=== PATIENT | female | born 1955 | race Caucasian/White ===

== ENCOUNTER 2020-07-21 13:59 | Inpatient (IN) | payer MEDICARE ==
[~2020-07-21] VITALS: Ht 162.6 cm; Wt 82.6 kg
[2020-07-21 15:09] LABS: BASOPHILS % (AUTO) 0.7 % (0.0-5.0); EOSINOPHILS % (AUTO) 0.9 % (0.0-8.0); HEMATOCRIT 42.9 % (36-48); MEAN CORPUSCULAR VOLUME 88.3 fL (79-99); MONOCYTES % (AUTO) 5.3 % (3.0-13.0); PLATELET COUNT (AUTO) 268 K/uL (130-400); RED BLOOD CELL COUNT(AUTO) 4.86 MIL/uL (4.00-5.50); WHITE BLOOD COUNT (AUTO) 6.8 K/uL (4.8-10.8)
[2020-07-21 15:22] LABS: INR 0.99 (0.85-1.15); PROTHROMBIN TIME 10.8 SEC (9.6-11.6)
[2020-07-21 15:24] LABS: PARTIAL THROMBOPLASTIN TIME 24.5 SEC (26.3-35.5)
[2020-07-21 15:36] LABS: CARBON DIOXIDE 27 mmol/L (21-32); CHLORIDE 101 mmol/L (101-111); CREATININE 0.9 mg/dL (0.5-1.5); GLOMERULAR FILTR. RATE CALC 67 mL/min (>60); GLUCOSE,RANDOM 99 mg/dL (70-105); POTASSIUM 4.3 mmol/L (3.5-5.1); SODIUM SERUM 136 mmol/L (136-145); UREA NITROGEN, BLOOD 16 mg/dL (7-18)
[2020-07-21 15:49] LABS: ALANINE AMINOTRANSFERASE 22 U/L (12-78); ALBUMIN 4.4 g/dL (3.5-5.0); ASPARTATE AMINOTRANSFERASE 28 U/L (10-37); BILIRUBIN,TOTAL 0.4 mg/dL (0.2-1.0); CREATINE KINASE, TOTAL 116 U/L (21-232); TOTAL PROTEIN, SERUM 7.8 g/dL (6.0-8.3)
[2020-07-21 15:53] LABS: CRP QUANTITATIVE < 2.00 mg/L (0.00-9.0)
[2020-07-21 16:13] LABS: ERYTHROCYTE SEDIMENTATION RATE 8 MM/HR (0-30)
[2020-07-21 20:54] LABS: APPEARANCE,URINE Clear (CLEAR); BILIRUBIN,URINE Negative (NEGATIVE); COLOR,URINE Yellow (YELLOW); GLUCOSE, URINE (UA) Negative (NEGATIVE); KETONES,URINE Negative (NEGATIVE); LEUKOCYTE ESTERASE ,URINE Moderate (NEGATIVE); NITRATE,URINE Negative (NEGATIVE); OCCULT BLOOD,URINE Negative (NEGATIVE); PROTEIN,URINE Negative (NEGATIVE); UROBILINOGEN,URINE 0.2 mg/dL (0.2-1.0)
[2020-07-21 21:21] LABS: RBC,URINE 0-1 /HPF (0-1)
[2020-07-21 21:22] LABS: BACTERIA,URINE Rare /HPF (None Seen); SQUAMOUS EPITHELIAL CELL,UR Rare /HPF (0-2); TRANSITIONAL EPI CELLS,URINE Rare /HPF (None Seen)
[2020-07-22] MEDS ORDERED: ONDANSETRON 4MG INJ IV PRN (02:30)
[2020-07-22] MEDS ORDERED: MORPHINE 2 MG SYG IV PRN (02:30)
[2020-07-22] MEDS ORDERED: LACTULOSE 20 GM/30 ML UDCUP PO PRN (02:30)
[2020-07-22] MEDS ORDERED: MORPHINE 4 MG SYG IV PRN (02:30)
[2020-07-22] MEDS: 0.9%NACL 1000ML 1,000 ML IV SCH ×2 (02:30→16:48)
[2020-07-22] MEDS ORDERED: 0.9%NACL 1000ML 1,000 ML IV ONE (03:03)
[2020-07-22] MEDS ORDERED: ATENOLOL 25 MG TABLET PO SCH ×2 (03:15→09:00)
[2020-07-22] MEDS ORDERED: CEFTRIAXONE 1G VIAL ONE ×2 (08:24→20:51)
[2020-07-22] MEDS ORDERED: FAMOTIDINE 20MG VIAL IV ONE ×2 (08:25→20:52)
[2020-07-22] MEDS ORDERED: MULTIVITAMIN TABLET ONE (08:25)
[2020-07-22] MEDS: LIOTHYRONINE 25 MCG PO SCH (09:00)
[2020-07-22] MEDS: FLUDROCORTISONE ACETATE 0.1 MG TABLET PO SCH (09:00)
[2020-07-22] MEDS: PAROXETINE HCL 20 MG TABLET PO SCH (09:00)
[2020-07-22] MEDS ORDERED: HYDROCORTISONE 20 MG TABLET PO SCH ×2 (09:00→14:00)
[2020-07-22] MEDS: MULTIVITAMIN TABLET PO SCH (09:00)
[2020-07-22] MEDS ORDERED: HYDROCORTISONE SOD SUCCINATE 100 MG/2 ML VIAL IV SCH (09:14)
[2020-07-22] MEDS ORDERED: 0.9%NACL 50ML 50 ML IV ONE (09:23)
[2020-07-22] MEDS: HYDROCORTISONE SOD SUCCINATE 100 MG/2 ML VIAL IV SCH ×2 (12:00→18:00)
[2020-07-22] MEDS ORDERED: MULT-1203 PO (13:54)
[2020-07-22] MEDS ORDERED: LIOT25TA12 PO (13:58)
[2020-07-22] MEDS ORDERED: LEVO50CA4 PO (13:59)
[2020-07-22] MEDS ORDERED: FLUD0.1T2 PO (14:00)
[2020-07-22] MEDS ORDERED: PARO30TA60 PO (14:01)
[2020-07-22] MEDS ORDERED: ROSU10TA28 PO (14:02)
[2020-07-22] MEDS ORDERED: ATEN25TA PO (14:02)
[2020-07-22] MEDS ORDERED: HYDR20TA24 PO (14:04)
[2020-07-22] MEDS ORDERED: HYDR-4419 PO (14:06)
[2020-07-22] MEDS: ENOXAPARIN SODIUM 40 MG/0.4 ML SYRINGE SQ SCH (18:00)
[2020-07-22] MEDS ORDERED: ENOXAPARIN SODIUM 40 MG/0.4 ML SYRINGE SQ ONE (18:01)
[2020-07-22] MEDS ORDERED: ATORVASTATIN 20 MG TABLET ONE (20:51)
[2020-07-22] MEDS ORDERED: ATENOLOL 25 MG TABLET ONE (20:51)
[2020-07-22] MEDS: CEFTRIAXONE 1G VIAL IV SCH (21:00)
[2020-07-22] MEDS: FAMOTIDINE 20MG VIAL IV SCH (21:00)
[2020-07-22] MEDS ORDERED: ATORVASTATIN 20 MG TABLET PO SCH (21:00)
[2020-07-22 21:30] VITALS: BP 109/76
[2020-07-23] VITALS (20 sets, daily range): BP systolic 97–125; BP diastolic 48–69
[2020-07-23 04:34] LABS: HEMATOCRIT 42.1 % (36-48); MEAN CORPUSCULAR HEMOGLOBIN 30.6 pg (27.0-33.0); MEAN CORPUSCULAR HGB CONC 34.4 g/dL (32.0-36.0); MEAN CORPUSCULAR VOLUME 88.8 fL (79-99); RED BLOOD CELL COUNT(AUTO) 4.74 MIL/uL (4.00-5.50); RED CELL DISTRIBUTION WIDTH 11.9 % (11.0-15.5); WHITE BLOOD COUNT (AUTO) 7.4 K/uL (4.8-10.8)
[2020-07-23 04:46] LABS: PROTHROMBIN TIME 10.9 SEC (9.6-11.6)
[2020-07-23 04:51] LABS: POTASSIUM 3.9 mmol/L (3.5-5.1)
[2020-07-23] MEDS: HYDROCORTISONE SOD SUCCINATE 100 MG/2 ML VIAL IV SCH ×3 (06:04→11:28)
[2020-07-23] MEDS: 0.9%NACL 1000ML 1,000 ML IV SCH (06:06)
[2020-07-23] MEDS ORDERED: MIDAZOLAM HCL 1 MG/ML 2ML VIAL ONE ×2 (06:23→06:35)
[2020-07-23] MEDS ORDERED: PROPOFOL 10 MG/ML 20ML VIAL IV ONE (06:23)
[2020-07-23] MEDS ORDERED: LIDOCAINE PF 100MG/5ML (2%) SYRINGE 5ML ONE (06:24)
[2020-07-23] MEDS ORDERED: FENTANYL CITRATE PF 50 MCG/1 ML 2ML VIAL ONE (06:24)
[2020-07-23] MEDS ORDERED: LIDOCAINE HCL 1% 20 ML VIAL ONE (06:43)
[2020-07-23] MEDS ORDERED: BUPIVACAINE/PF 0.5% 30ML VIAL ONE (06:44)
[2020-07-23] MEDS ORDERED: TRAMADOL HCL 50 MG TABLET PO PRN (06:45)
[2020-07-23] MEDS ORDERED: FERROUS FUMARATE 324 MG TABLET PO PRN (06:45)
[2020-07-23] MEDS: ACETAMINOPHEN 500 MG TABLET PO SCH ×2 (06:45→13:52)
[2020-07-23] MEDS ORDERED: DiphenhydrAMINE HCL 50 MG/ML VIAL IVP PRN (06:45)
[2020-07-23] MEDS ORDERED: DIPHENHYDRAMINE HCL 25 MG CAPSULE PO PRN (06:45)
[2020-07-23] MEDS ORDERED: POTASSIUM CHLORIDE 20MEQ/100ML 100 ML IV PRN (06:45)
[2020-07-23] MEDS: LIOTHYRONINE 25 MCG PO SCH (09:00)
[2020-07-23] MEDS: FAMOTIDINE 20MG VIAL IV SCH (09:00)
[2020-07-23] MEDS ORDERED: ACET1TAB25 PO (09:22)
[2020-07-23] MEDS ORDERED: HYDR20TA24 PO ×2 (09:22)
[2020-07-23] MEDS ORDERED: CEPH500B PO (09:24)
[2020-07-23] MEDS: MULTIVITAMIN TABLET PO SCH (11:25)
[2020-07-23] MEDS: PAROXETINE HCL 20 MG TABLET PO SCH (11:25)
[2020-07-23] MEDS: CEFTRIAXONE 1G VIAL IV SCH (11:26)
[2020-07-23] MEDS: ENOXAPARIN SODIUM 40 MG/0.4 ML SYRINGE SQ SCH (11:27)
[2020-07-23] MEDS: FLUDROCORTISONE ACETATE 0.1 MG TABLET PO SCH (11:29)
[2020-07-23] MEDS ORDERED: PSYLLIUM SEED 1 EACH PACKET PO SCH (12:00)
[2020-07-23] MEDS ORDERED: HYDROCORTISONE 20 MG TABLET PO SCH ×2 (14:00)
[2020-07-24] MEDS ORDERED: FLUDROCORTISONE ACETATE 0.1 MG TABLET PO SCH (09:00)
[2020-07-25] MEDS ORDERED: BISACODYL 5 MG TABLET.DR PO PRN (06:45)
[2020-07-26] MEDS ORDERED: BISACODYL 10 MG SUPP.RECT RC PRN (06:45)
== END 2020-07-23 17:50 | disposition home or self-care (01) | DRG 496 ==
LOC: EDSEX 13:59 → EDH 13:59 → EDHIP 07-22 02:19 → 3AH 07-22 20:41
PROVIDERS: ADMIT Internal Medicine; ATTEND Internal Medicine
PROC: 0QP Lower Bones, Removal (ICD-10-PCS; principal; 2020-07-23 06:28)
DX: T84.398A Other mechanical complication of other bone devices, implants and grafts, initial encounter (principal); E27.1 Primary adrenocortical insufficiency; N39.0 Urinary tract infection, site not specified; E06.3 Autoimmune thyroiditis; Z20.822 Contact with and (suspected) exposure to COVID-19; Y83.8 Other surgical procedures as the cause of abnormal reaction of the patient, or of later complication, without mention of misadventure at the time of the procedure; Z86.79 Personal history of other diseases of the circulatory system; Z79.52 Long term (current) use of systemic steroids; Z79.899 Other long term (current) drug therapy; Z87.891 Personal history of nicotine dependence; Y92.89 Other specified places as the place of occurrence of the external cause
CPT/HCPCS: 36415; 71045; 73562; 80048; 80053; 81001; 82550; 83605; 84145; 84484; 85025; 85027; 85610; 85651; 85730; 86140; 87040; 87088; 87426; 88300; 93005; 97039; A4606; G0378; J0696; J1650; J1720; J2001; J2250; J2704; J3010; J3490; J7030; U0003